=== PATIENT | male | born 1945 | race Caucasian/White ===

== ENCOUNTER → 2019-10-17 08:06 | Outpatient (CLI) | payer OTHER, SELFPAY ==
--- NOTE | 2019-10-17 17:53 | DI.NM.S_ITS ---
DATE OF SERVICE: 10/17/2019 PROCEDURE: Exercise perfusion study. INDICATIONS: Dyspnea on exertion, AFib. RADIOPHARMACEUTICAL: 26.1 millicurie technetium-99m Myoview IV was injected at stress and 13.2 millicurie technetium-99m Myoview IV was injected at rest. CARDIAC STRESS: The patient underwent exercise perfusion study under the supervision of an attending staff. The patient walked on Frederic protocol for 6 minutes 09 seconds and achieved 119 percent of target heart rate with normal blood pressure response. No anginal symptoms. Baseline rhythm was atrial fibrillation. During stress, there was enhanced chronotropic response. There was nonspecific baseline EKG changes. No convincing new ischemic changes. Patient remained in atrial fibrillation. RAW DATA: There is increased subdiaphragmatic activity. GATED STUDY: Stress LV ejection fraction 69 percent without any obvious wall motion abnormalities. Resting end-diastolic volume 100 mL. TID ratio 0.82 which is within normal limits. Lung/heart ratio 0.31, which is within normal limits. MYOCARDIAL PERFUSION: Stress supine, resting supine and stress prone images were compared to each other. It appears to be that patient has normal myocardial perfusion. CONCLUSION: This is a normal myocardial perfusion study. The patient has baseline AFib. Functional aerobic impairment 0 percent. The patient achieved 7 metabolic equivalents of workload. Walked on Frederic protocol for 6 minutes 09 seconds. Enhanced chronotropic response. No anginal symptoms. Overall, this is a low-risk myocardial perfusion scan. Ivan Armstrong - Tremaine/harsha doc#: [id number]/job#: [id number] dd: 10/17/2019 17:07:00 dt: 10/17/2019 17:19:00 DICTATING MD/COPIES TO: Luisa Dewitt MD COPIES MNE: MARJAN;
== END ==
PROVIDERS: PCP Student in an Organized Health Care Education/Training Program; Referring Provider Student in an Organized Health Care Education/Training Program; Visit Provider Student in an Organized Health Care Education/Training Program
DX: R06.09 Other forms of dyspnea (principal); I48.91 Unspecified atrial fibrillation
CPT/HCPCS: 78452; 93017; A9502